=== PATIENT | female | born 1985 | race American Indian/Alaskan Native ===

== ENCOUNTER 2016-08-10 08:03 | Emergency (ER) | payer MEDICAID, OTHER ==
[2016-08-10] MEDS ORDERED: Lidocaine 1% 30 ML SDV INJECT ONE (08:20)
[2016-08-10] MEDS ORDERED: Bacitracin Oint 1 GM U/D Packet TOP ONE (08:20)
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
[2016-08-10 08:36] VITALS: BP 122/74
== END 2016-08-10 08:57 ==
LOC: DL.ED 08:03
DX: S61.012A Laceration without foreign body of left thumb without damage to nail, initial encounter (principal); H54.7 Unspecified visual loss; F41.9 Anxiety disorder, unspecified; F32.9 Major depressive disorder, single episode, unspecified; Z79.899 Other long term (current) drug therapy; Y04.0XXA Assault by unarmed brawl or fight, initial encounter; Z98.890 Other specified postprocedural states
CPT/HCPCS: 12001; 99282; 99283

== ENCOUNTER 2023-02-10 18:52 | Emergency (ER) | payer OTHER ==
[2023-02-10 19:16] LABS: APPEARANCE,URINE CLEAR (CLEAR); BILIRUBIN,URINE SMALL (NEGATIVE); COLOR,URINE YELLOW (YELLOW); GLUCOSE,URINE NEGATIVE (NEGATIVE); KETONES,URINE 40 (NEGATIVE); LEUKOCYTE ESTERASE,URINE TRACE (NEGATIVE); NITRITE,URINE NEGATIVE (NEGATIVE); OCCULT BLOOD,URINE MODERATE (NEGATIVE); PROTEIN,URINE 100 (NEGATIVE)
[2023-02-10 19:19] LABS: AMPHETAMINES,URINE POSITIVE (NEGATIVE); BARBITURATES,URINE NEGATIVE (NEGATIVE); BENZODIAZEPINE,URINE NEGATIVE (NEGATIVE); MDMA (ECSTASY), URINE POSITIVE (NEGATIVE); METHADONE,URINE NEGATIVE (NEGATIVE); METHAMPHETAMINES,URINE POSITIVE (NEGATIVE); OPIATES,URINE NEGATIVE (NEGATIVE); OXYCODONE,URINE NEGATIVE (NEGATIVE); PHENCYCLIDINE,URINE NEGATIVE (NEGATIVE); TCA,URINE NEGATIVE (NEGATIVE)
[2023-02-10 19:24] VITALS: BP 130/95; PULSE 122
[2023-02-10 19:26] LABS: BACTERIA,URINE MANY /HPF (0-FEW/HPF); EPITHELIAL CELLS,URINE MODERATE /HPF (NOT SEEN); MUCUS,URINE MANY /LPF (NOT SEEN); WBC,URINE 20-30 /HPF (0-5/HPF)
== END 2023-02-10 20:32 | disposition home or self-care (01) ==
LOC: DL.ED 18:52
DX: F15.980 Other stimulant use, unspecified with stimulant-induced anxiety disorder (principal); F12.180 Cannabis abuse with cannabis-induced anxiety disorder; Z79.899 Other long term (current) drug therapy
CPT/HCPCS: 80305-QW; 81001; 81025; 87086; 99285

== ENCOUNTER 2023-02-21 17:41 | Emergency (ER) | payer OTHER | END 2023-02-21 17:45 | disposition left against medical advice (07) | LOC: DL.ED 17:41 | DX: Z53.21 Procedure and treatment not carried out due to patient leaving prior to being seen by health care provider (principal) ==

== ENCOUNTER 2023-02-27 16:20 | Emergency (ER) | payer OTHER ==
[2023-02-27 19:23] VITALS: BP 119/78; PULSE 787
== END 2023-02-27 19:22 | disposition home or self-care (01) ==
LOC: DL.ED 16:20
DX: R51.9 Headache, unspecified (principal); F07.81 Postconcussional syndrome; F17.210 Nicotine dependence, cigarettes, uncomplicated
CPT/HCPCS: 70450; 99283; 99284

== ENCOUNTER 2023-03-01 10:12 | Emergency (ER) | payer OTHER ==
[2023-03-01] MEDS ORDERED: Ketorolac 30 MG/ML SDV IM ONE (10:24)
[2023-03-01] MEDS ORDERED: Dexamethasone 4 MG/ML SDV IM ONE (10:25)
[2023-03-01 10:26] VITALS: BP 93/51; PULSE 70
[2023-03-01] MEDS ORDERED: Ketorolac 30 MG/ML SDV ONE (10:40)
[2023-03-01 11:11] LABS: CORONAVIRUS COVID-19 NAA NEGATIVE (NEGATIVE); INFLUENZA A NAA POSITIVE (NEGATIVE); INFLUENZA B NAA NEGATIVE (NEGATIVE)
== END 2023-03-01 11:28 | disposition home or self-care (01) ==
LOC: DL.ED 10:12
DX: J10.1 Influenza due to other identified influenza virus with other respiratory manifestations (principal); Z79.899 Other long term (current) drug therapy
CPT/HCPCS: 0240U; 96372; 99282; 99285; J1100; J1885

== ENCOUNTER 2024-10-04 14:43 | Inpatient (IN) | payer MEDICAID ==
[2024-10-04 14:59] LABS: BASOPHILS PERCENT AUTO 0.7 % (0.0-1.0); EOSINOPHILS PERCENT AUTO 0.9 % (1.0-3.0); LYMPHOCYTES PERCENT AUTO 24.7 % (20.5-50.1); MONOCYTES PERCENT AUTO 9.8 % (2-8); NEUTROPHILS PERCENT AUTO 63.9 % (42.2-75.2); PLATELET COUNT,PLT 190 10^3/uL (150-450); RED BLOOD CELL COUNT 2.94 10^6/uL (4.2-5.4); WHITE BLOOD CELL COUNT,WBC 8.1 10^3/uL (5.0-10.0)
[2024-10-04 15:18] LABS: INR 1.1 (0.9-1.2); PTT,PARTIAL THROMBOPLSTIN TIME 20.5 SEC (22.0-34.0)
[2024-10-04] MEDS: Sodium Chloride 0.9% 10 ML Syringe FLUSH PRN (15:19)
[2024-10-04] MEDS: NS with KCl 40mEq 1,000 ML IV SCH (15:19)
[2024-10-04 15:21] LABS: A/G RATIO 0.7; ALANINE AMINOTRANSFERASE,ALT 196 U/L (14-59); ASPARTATE AMNIOTRANSFERASE,AST 255 U/L (15-37); BILIRUBIN TOTAL 3.3 mg/dL (0.2-1.0); BLOOD UREA NITROGEN,BUN 6 mg/dL (7-18); CARBON DIOXIDE,CO2 30 mmol/L (21-32); CREATININE 1.18 mg/dL (0.55-1.02); EST CRCL DRUG DOSING (CG) 55.82 mL/min; GLUCOSE RANDOM 166 mg/dL (70-99); PROTEIN TOTAL,TP 8.4 g/dL (6.4-8.2)
[2024-10-04] MEDS: Thiamine 200 MG/2 ML MDV IVPUSH ONE (15:22)
[2024-10-04 15:28] LABS: CHLORIDE,CL 91 mmol/L (98-107); SODIUM,NA 129 mmol/L (136-145)
[2024-10-04 15:30] LABS: ESTIMATED GFR 61 mL/min (>=60); ETHANOL BLOOD MEDICAL < 3 mg/dL (0)
[2024-10-04 15:31] LABS: POTASSIUM,K 2.4 mmol/L (3.5-5.1)
[2024-10-04] MEDS: Iopamidol 612 MG/ML 100 ML Bottle IVPUSH ONE (15:39)
[2024-10-04] MEDS: Magnesium Sulfate 2 GM/50 mL 2 GM in Premix Bag 1 BAG IV ONE (15:42)
[2024-10-04 17:31] LABS: AMPHETAMINES,URINE NEGATIVE (NEGATIVE); BARBITURATES,URINE NEGATIVE (NEGATIVE); MDMA (ECSTASY), URINE NEGATIVE (NEGATIVE); METHAMPHETAMINES,URINE NEGATIVE (NEGATIVE); OPIATES,URINE NEGATIVE (NEGATIVE); OXYCODONE,URINE NEGATIVE (NEGATIVE); PHENCYCLIDINE,URINE NEGATIVE (NEGATIVE); TCA,URINE NEGATIVE (NEGATIVE)
[2024-10-04] MEDS ORDERED: Sennosides/Docusate Sodium 50-8.6 MG Tab PO PRN (18:15)
[2024-10-04 19:13] LABS: LACTATE DEHYDROGENASE,LDH 636.0 U/L (81-234)
[2024-10-04] MEDS ORDERED: Flumazenil 0.1 MG/ML 5 ML MDV IVPUSH PRN (19:24)
[2024-10-04] MEDS: MVI, Adult with Vitamin K 10 ML, Folic Acid 1 MG, Thiamine 100 MG in Lactated Ringers 1... IV ONE (20:11)
[2024-10-04 23:01] LABS: IRON,FE 27.0 ug/dL (50-170); PERCENT FE SATURATION 11.3 % (20.0-50.0)
[2024-10-04 23:24] LABS: FOLIC ACID 15.0 ng/mL (8.6-58.9); T4 FREE 1.2 ng/dL (0.76-1.46); TSH ULTRASENSITIVE 1.67 uIU/mL (0.36-3.74)
[2024-10-05] MEDS: diphenhydrAMINE 50 MG/ML SDV IVPUSH ONE (02:06)
[2024-10-05] MEDS: methylPREDNISolone Sodium Succinate 40 MG/1 ML SDV IVPUSH ONE (02:07)
[2024-10-05 06:31] LABS: PLATELET COUNT,PLT 198 10^3/uL (150-450); RED BLOOD CELL COUNT 2.55 10^6/uL (4.2-5.4); WHITE BLOOD CELL COUNT,WBC 3.9 10^3/uL (5.0-10.0)
[2024-10-05 06:42] LABS: BASOPHILS PERCENT AUTO 0.8 % (0.0-1.0); EOSINOPHILS PERCENT AUTO 0.8 % (1.0-3.0); LYMPHOCYTES PERCENT AUTO 18.7 % (20.5-50.1); MONOCYTES PERCENT AUTO 3.9 % (2-8); NEUTROPHILS PERCENT AUTO 75.8 % (42.2-75.2)
[2024-10-05 06:53] LABS: ALANINE AMINOTRANSFERASE,ALT 160.0 U/L (14-59); ASPARTATE AMNIOTRANSFERASE,AST 237.0 U/L (15-37); BILIRUBIN DIRECT 2.0 mg/dL (0.0-0.2); BILIRUBIN TOTAL 2.8 mg/dL (0.2-1.0); BLOOD UREA NITROGEN,BUN 3.0 mg/dL (7-18); CARBON DIOXIDE,CO2 32.0 mmol/L (21-32); CHLORIDE,CL 100.0 mmol/L (98-107); CREATININE 0.88 mg/dL (0.55-1.02); EST CRCL DRUG DOSING (CG) 74.85 mL/min; GAMMA GLUTAMYL TRANSFERASE,GGT 466.0 U/L (5-55); GLUCOSE RANDOM 163.0 mg/dL (70-99); POTASSIUM,K 2.9 mmol/L (3.5-5.1); PROTEIN TOTAL,TP 6.9 g/dL (6.4-8.2); SODIUM,NA 139.0 mmol/L (136-145)
[2024-10-05 06:54] LABS: A/G RATIO 0.73; ESTIMATED GFR 86.0 mL/min (>=60)
[2024-10-05 07:19] LABS: BAND PERCENT MAN 2 %; EOSINOPHILS PERCENT MAN 1 % (1-3); LYMPHOCYTES PERCENT MAN 18 % (20-50); MONOCYTES PERCENT MAN 3 % (2-8); SEG NEUTROPHILS PERCENT MAN 76 % (42-75)
[2024-10-05] MEDS: Ondansetron 4 MG/2 ML SDV IVPUSH PRN (11:13)
[2024-10-05] MEDS: Potassium Chloride 10% 20 MEQ/15 ML Soln 15 ML UD Cup PO SCH (11:20)
[2024-10-05] MEDS ORDERED: diphenhydrAMINE 50 MG/ML SDV IVPUSH PRN (11:33)
[2024-10-05] MEDS: Potassium Chloride 10 MEQ Tab.ER PO ONE (13:40)
[2024-10-05] MEDS: methylPREDNISolone Sodium Succinate 40 MG/1 ML SDV IVPUSH SCH (13:41)
[2024-10-06 06:30] LABS: PLATELET COUNT,PLT 229 10^3/uL (150-450); RED BLOOD CELL COUNT 2.36 10^6/uL (4.2-5.4); WHITE BLOOD CELL COUNT,WBC 7.2 10^3/uL (5.0-10.0)
[2024-10-06 06:31] LABS: BASOPHILS PERCENT AUTO 0.1 % (0.0-1.0); EOSINOPHILS PERCENT AUTO 0.8 % (1.0-3.0); LYMPHOCYTES PERCENT AUTO 28.7 % (20.5-50.1); MONOCYTES PERCENT AUTO 11.2 % (2-8); NEUTROPHILS PERCENT AUTO 59.2 % (42.2-75.2)
[2024-10-06 06:49] LABS: ALANINE AMINOTRANSFERASE,ALT 159 U/L (14-59); ASPARTATE AMNIOTRANSFERASE,AST 232 U/L (15-37); BILIRUBIN TOTAL 1.8 mg/dL (0.2-1.0); BLOOD UREA NITROGEN,BUN 6 mg/dL (7-18); CARBON DIOXIDE,CO2 27 mmol/L (21-32); CHLORIDE,CL 104 mmol/L (98-107); CREATININE 1.22 mg/dL (0.55-1.02); EST CRCL DRUG DOSING (CG) 53.99 mL/min; GLUCOSE RANDOM 128 mg/dL (70-99); POTASSIUM,K 3.7 mmol/L (3.5-5.1); PROTEIN TOTAL,TP 6.7 g/dL (6.4-8.2); SODIUM,NA 139 mmol/L (136-145)
[2024-10-06 06:53] LABS: A/G RATIO 0.68; ESTIMATED GFR 58 mL/min (>=60)
[2024-10-06 07:23] LABS: LYMPHOCYTES PERCENT MAN 29 % (20-50); MONOCYTES PERCENT MAN 6 % (2-8); NRBC MANUAL 2 /100WBC; SEG NEUTROPHILS PERCENT MAN 65 % (42-75)
[2024-10-06] MEDS: diphenhydrAMINE 50 MG/ML SDV IVPUSH SCH (11:57)
[2024-10-06 13:21] LABS: BASOPHILS PERCENT AUTO 0.4 % (0.0-1.0); EOSINOPHILS PERCENT AUTO 0.2 % (1.0-3.0); LYMPHOCYTES PERCENT AUTO 15.2 % (20.5-50.1); MONOCYTES PERCENT AUTO 5.2 % (2-8); NEUTROPHILS PERCENT AUTO 79.0 % (42.2-75.2); PLATELET COUNT,PLT 245 10^3/uL (150-450); RED BLOOD CELL COUNT 2.40 10^6/uL (4.2-5.4); WHITE BLOOD CELL COUNT,WBC 5.4 10^3/uL (5.0-10.0)
[2024-10-06 13:35] LABS: BLOOD UREA NITROGEN,BUN 7.0 mg/dL (7-18); CARBON DIOXIDE,CO2 28.0 mmol/L (21-32); CHLORIDE,CL 104.0 mmol/L (98-107); CREATININE 0.99 mg/dL (0.55-1.02); EST CRCL DRUG DOSING (CG) 66.53 mL/min; GLUCOSE RANDOM 179.0 mg/dL (70-99); POTASSIUM,K 4.2 mmol/L (3.5-5.1); SODIUM,NA 138.0 mmol/L (136-145)
[2024-10-06 13:38] LABS: ESTIMATED GFR 75.0 mL/min (>=60)
[2024-10-06] MEDS: Potassium Chloride 10% 20 MEQ/15 ML Soln 15 ML UD Cup PO ONE (14:52)
[2024-10-07 06:23] LABS: BASOPHILS PERCENT AUTO 0.5 % (0.0-1.0); EOSINOPHILS PERCENT AUTO 1.6 % (1.0-3.0); LYMPHOCYTES PERCENT AUTO 34.4 % (20.5-50.1); MONOCYTES PERCENT AUTO 14.4 % (2-8); NEUTROPHILS PERCENT AUTO 49.1 % (42.2-75.2); PLATELET COUNT,PLT 288 10^3/uL (150-450); RED BLOOD CELL COUNT 2.44 10^6/uL (4.2-5.4); WHITE BLOOD CELL COUNT,WBC 7.3 10^3/uL (5.0-10.0)
[2024-10-07 06:48] LABS: A/G RATIO 0.64; ALANINE AMINOTRANSFERASE,ALT 145.0 U/L (14-59); ASPARTATE AMNIOTRANSFERASE,AST 211.0 U/L (15-37); BILIRUBIN TOTAL 1.1 mg/dL (0.2-1.0); BLOOD UREA NITROGEN,BUN 8.0 mg/dL (7-18); CARBON DIOXIDE,CO2 29.0 mmol/L (21-32); CHLORIDE,CL 107.0 mmol/L (98-107); CREATININE 1.03 mg/dL (0.55-1.02); EST CRCL DRUG DOSING (CG) 63.95 mL/min; ESTIMATED GFR 71.0 mL/min (>=60); GLUCOSE RANDOM 106.0 mg/dL (70-99); POTASSIUM,K 3.9 mmol/L (3.5-5.1); PROTEIN TOTAL,TP 5.9 g/dL (6.4-8.2); SODIUM,NA 140.0 mmol/L (136-145)
[2024-10-07] MEDS ORDERED: Potassium Chloride 10% 20 MEQ/15 ML Soln 15 ML UD Cup PO SCH (08:00)
[2024-10-07 11:14] VITALS: BP 108/65; PULSE 116
== END 2024-10-07 13:21 | disposition home or self-care (01) | DRG 896 ==
LOC: DL.ED 14:43 → DL.MS 17:47 → INTOOBSV 17:47 → DL.MS 18:05 → OBSVTOIN 10-06 15:49
PROVIDERS: ADMIT Student in an Organized Health Care Education/Training Program; ATTEND Student in an Organized Health Care Education/Training Program
DX: F10.139 Alcohol abuse with withdrawal, unspecified (principal); K85.20 Alcohol induced acute pancreatitis without necrosis or infection; E87.1 Hypo-osmolality and hyponatremia; F41.9 Anxiety disorder, unspecified; F32.A Depression, unspecified; E87.6 Hypokalemia; E83.42 Hypomagnesemia; E80.6 Other disorders of bilirubin metabolism; K70.0 Alcoholic fatty liver; R73.9 Hyperglycemia, unspecified; F12.90 Cannabis use, unspecified, uncomplicated; B19.20 Unspecified viral hepatitis C without hepatic coma; L29.9 Pruritus, unspecified; D50.9 Iron deficiency anemia, unspecified; R74.02 Elevation of levels of lactic acid dehydrogenase [LDH]; R74.8 Abnormal levels of other serum enzymes; E88.09 Other disorders of plasma-protein metabolism, not elsewhere classified; Z98.890 Other specified postprocedural states; Z79.899 Other long term (current) drug therapy; Z98.51 Tubal ligation status
CPT/HCPCS: 36415; 74177; 80048; 80053; 80305-QW; 80307; 82140; 82248; 82272; 82607; 82728; 82746; 82977; 83036; 83540; 83550; 83605; 83615; 83690; 83735; 84132; 84439; 84443; 85025; 85610; 85730; 86140; 86850; 86900; 86901; 93005; 93010; 96365; 96366; 96367; 96368; 96375; 96376; 97161-GP; 99223; 99232; 99238; 99285; 99285-25; A9270-GY; G0378; J1200; J1308; J1808; J2405; J2919; J3360; J3411; J3475; J3480; J3490; J7120; Q9967

== ENCOUNTER 2024-11-26 23:02 | Emergency (ER) | payer MEDICAID ==
[2024-11-26] MEDS ORDERED: Sodium Chloride 0.9% 10 ML Syringe FLUSH PRN (23:15)
[2024-11-26 23:30] LABS: BASOPHILS PERCENT AUTO 0.7 % (0.0-1.0); EOSINOPHILS PERCENT AUTO 1.8 % (1.0-3.0); LYMPHOCYTES PERCENT AUTO 45.8 % (20.5-50.1); MONOCYTES PERCENT AUTO 5.5 % (2-8); NEUTROPHILS PERCENT AUTO 46.2 % (42.2-75.2); PLATELET COUNT,PLT 97 10^3/uL (150-450); RED BLOOD CELL COUNT 3.44 10^6/uL (4.2-5.4); WHITE BLOOD CELL COUNT,WBC 7.3 10^3/uL (5.0-10.0)
[2024-11-26 23:58] LABS: LACTIC ACID 3.1 mmol/L (0.4-2.0)
[2024-11-27 00:03] LABS: A/G RATIO 0.61; ALANINE AMINOTRANSFERASE,ALT 401 U/L (14-59); BILIRUBIN TOTAL 4.2 mg/dL (0.2-1.0); BLOOD UREA NITROGEN,BUN 7 mg/dL (7-18); CARBON DIOXIDE,CO2 25 mmol/L (21-32); CHLORIDE,CL 95 mmol/L (98-107); GLUCOSE RANDOM 124 mg/dL (70-99); POTASSIUM,K 3.2 mmol/L (3.5-5.1); PROTEIN TOTAL,TP 9.2 g/dL (6.4-8.2); SODIUM,NA 137 mmol/L (136-145)
[2024-11-27 00:35] LABS: ETHANOL BLOOD MEDICAL 226.0 mg/dL (0)
[2024-11-27 00:37] VITALS: BP 125/79; PULSE 99
[2024-11-27 00:39] LABS: CREATININE 0.76 mg/dL (0.55-1.02); EST CRCL DRUG DOSING (CG) 97.60 mL/min
[2024-11-27 00:40] LABS: ASPARTATE AMNIOTRANSFERASE,AST > 1000 U/L (15-37); ESTIMATED GFR 103 mL/min (>=60)
== END 2024-11-27 01:06 | disposition left against medical advice (07) ==
LOC: DL.ED 23:02
DX: F10.120 Alcohol abuse with intoxication, uncomplicated (principal); D64.9 Anemia, unspecified; E87.20 Acidosis, unspecified; Z79.899 Other long term (current) drug therapy; Y90.9 Presence of alcohol in blood, level not specified
CPT/HCPCS: 36415; 80053; 80307; 83605; 83735; 84145; 85025; 96360; 99283; J7030; 99285

== ENCOUNTER 2024-11-28 16:39 | Inpatient (IN) | payer MEDICAID ==
[2024-11-28] MEDS ORDERED: Sodium Chloride 0.9% 10 ML Syringe FLUSH PRN (17:09)
[2024-11-28 17:26] LABS: BASOPHILS PERCENT AUTO 0.3 % (0.0-1.0); EOSINOPHILS PERCENT AUTO 1.0 % (1.0-3.0); LYMPHOCYTES PERCENT AUTO 20.6 % (20.5-50.1); MONOCYTES PERCENT AUTO 6.1 % (2-8); NEUTROPHILS PERCENT AUTO 72.0 % (42.2-75.2); PLATELET COUNT,PLT 92 10^3/uL (150-450); RED BLOOD CELL COUNT 3.22 10^6/uL (4.2-5.4); WHITE BLOOD CELL COUNT,WBC 7.9 10^3/uL (5.0-10.0)
[2024-11-28 17:41] LABS: INR 1.1 (0.9-1.2)
[2024-11-28 17:57] LABS: A/G RATIO 0.66; ALANINE AMINOTRANSFERASE,ALT 306 U/L (14-59); ASPARTATE AMNIOTRANSFERASE,AST 659 U/L (15-37); BILIRUBIN TOTAL 4.0 mg/dL (0.2-1.0); BLOOD UREA NITROGEN,BUN 4 mg/dL (7-18); CARBON DIOXIDE,CO2 26 mmol/L (21-32); CHLORIDE,CL 94 mmol/L (98-107); ETHANOL BLOOD MEDICAL 135 mg/dL (0); GLUCOSE RANDOM 147 mg/dL (70-99); POTASSIUM,K 2.8 mmol/L (3.5-5.1); PROTEIN TOTAL,TP 8.3 g/dL (6.4-8.2); SODIUM,NA 135 mmol/L (136-145)
[2024-11-28] MEDS: Iopamidol 755 Mg/ML 100 ML Bottle IVPUSH ONE (18:00)
[2024-11-28 18:09] LABS: CREATININE 0.86 mg/dL (0.55-1.02); EST CRCL DRUG DOSING (CG) 86.25 mL/min
[2024-11-28 18:10] LABS: ESTIMATED GFR 89 mL/min (>=60)
[2024-11-28 19:52] LABS: AMPHETAMINES,URINE NEGATIVE (NEGATIVE); BARBITURATES,URINE NEGATIVE (NEGATIVE); MDMA (ECSTASY), URINE NEGATIVE (NEGATIVE); METHAMPHETAMINES,URINE NEGATIVE (NEGATIVE); OPIATES,URINE NEGATIVE (NEGATIVE); OXYCODONE,URINE NEGATIVE (NEGATIVE); PHENCYCLIDINE,URINE NEGATIVE (NEGATIVE); TCA,URINE NEGATIVE (NEGATIVE)
[2024-11-28] MEDS: Potassium Chloride 20 MEQ in Premix Bag 1 BAG IV SCH (19:59)
[2024-11-28 21:31] LABS: IRON,FE 42.0 ug/dL (50-170); PERCENT FE SATURATION 15.8 % (20.0-50.0)
[2024-11-28 21:56] LABS: FOLIC ACID 7.2 ng/mL (8.6-58.9)
[2024-11-28 21:57] LABS: GAMMA GLUTAMYL TRANSFERASE,GGT 808.0 U/L (5-55)
[2024-11-28] MEDS: MVI, Adult with Vitamin K 10 ML, Folic Acid 1 MG, Thiamine 100 MG in Lactated Ringers 1... IV ONE (22:45)
[2024-11-28] MEDS: Magnesium Sulfate 2 GM/50 mL 2 GM in Premix Bag 1 BAG IV ONE (22:46)
[2024-11-28] MEDS: Potassium Phosphates 15 MMOLE in Sodium Chloride 0.9% 250 ML IV ONE (22:47)
[2024-11-28] MEDS: Ondansetron 4 MG/2 ML SDV IVPUSH PRN (22:49)
[2024-11-29 06:15] LABS: PLATELET COUNT,PLT 77.0 10^3/uL (150-450); RED BLOOD CELL COUNT 2.72 10^6/uL (4.2-5.4); WHITE BLOOD CELL COUNT,WBC 5.0 10^3/uL (5.0-10.0)
[2024-11-29 06:41] LABS: ALANINE AMINOTRANSFERASE,ALT 201.0 U/L (14-59); ASPARTATE AMNIOTRANSFERASE,AST 373.0 U/L (15-37); BILIRUBIN DIRECT 2.7 mg/dL (0.0-0.2); BILIRUBIN INDIRECT 1.1; BILIRUBIN TOTAL 3.8 mg/dL (0.2-1.0); BLOOD UREA NITROGEN,BUN 4.0 mg/dL (7-18); CARBON DIOXIDE,CO2 27.0 mmol/L (21-32); CHLORIDE,CL 101.0 mmol/L (98-107); CREATININE 0.67 mg/dL (0.55-1.02); EST CRCL DRUG DOSING (CG) 110.71 mL/min; GLUCOSE RANDOM 100.0 mg/dL (70-99); PHOSPHORUS 3.3 mg/dL (2.6-4.7); POTASSIUM,K 3.2 mmol/L (3.5-5.1); PROTEIN TOTAL,TP 6.6 g/dL (6.4-8.2); SODIUM,NA 137.0 mmol/L (136-145)
[2024-11-29 06:43] LABS: A/G RATIO 0.65; ESTIMATED GFR 115.0 mL/min (>=60)
[2024-11-29] MEDS ORDERED: Sodium Chloride 0.9% 10 ML Syringe FLUSH PRN (08:13)
[2024-11-29] MEDS: Potassium Chloride 20 MEQ in Premix Bag 1 BAG IV ONE (08:57)
[2024-11-29] MEDS: Sodium Chloride 0.9% 10 ML Syringe FLUSH SCH (09:03)
[2024-11-30 06:56] LABS: BASOPHILS PERCENT AUTO 0.4 % (0.0-1.0); EOSINOPHILS PERCENT AUTO 4.5 % (1.0-3.0); LYMPHOCYTES PERCENT AUTO 24.0 % (20.5-50.1); MONOCYTES PERCENT AUTO 8.8 % (2-8); NEUTROPHILS PERCENT AUTO 62.3 % (42.2-75.2); PLATELET COUNT,PLT 82 10^3/uL (150-450); RED BLOOD CELL COUNT 2.66 10^6/uL (4.2-5.4); WHITE BLOOD CELL COUNT,WBC 4.7 10^3/uL (5.0-10.0)
[2024-11-30 07:14] LABS: BLOOD UREA NITROGEN,BUN 3.0 mg/dL (7-18); CARBON DIOXIDE,CO2 24.0 mmol/L (21-32); CHLORIDE,CL 106.0 mmol/L (98-107); CREATININE 0.62 mg/dL (0.55-1.02); EST CRCL DRUG DOSING (CG) 119.64 mL/min; GLUCOSE RANDOM 139.0 mg/dL (70-99); POTASSIUM,K 3.2 mmol/L (3.5-5.1); SODIUM,NA 140.0 mmol/L (136-145)
[2024-11-30 07:16] LABS: ESTIMATED GFR 117.0 mL/min (>=60)
[2024-11-30] MEDS: Potassium Chloride 20 MEQ in Premix Bag 1 BAG IV ONE (09:17)
[2024-11-30 20:16] VITALS: BP 111/82; PULSE 117
[2024-12-01 12:47] LABS: HAV AB IGM Negative (Negative); HBC IGM Negative (Negative); HEP B SURG AG Negative (Negative); HEP C AB BY CIA High Pos (Negative); HEP C AB BY CIA INDEX >11.00 IV
[2024-12-02 05:46] LABS: HEP C QNT BY NAAT (IU/mL) Not Detected; HEP C QNT BY NAAT (log IU/mL) Not Detected log IU/mL; HEP C QNT BY NAAT INTERP Not Detected (Not Detected)
== END 2024-11-30 21:30 | disposition home or self-care (01) | DRG 439 ==
LOC: DL.ED 16:39 → DL.MS 20:15
PROVIDERS: ADMIT Internal Medicine; ATTEND Internal Medicine
DX: K85.20 Alcohol induced acute pancreatitis without necrosis or infection (principal); E87.20 Acidosis, unspecified; F10.239 Alcohol dependence with withdrawal, unspecified; F17.210 Nicotine dependence, cigarettes, uncomplicated; F12.90 Cannabis use, unspecified, uncomplicated; Y90.6 Blood alcohol level of 120-199 mg/100 ml; K29.20 Alcoholic gastritis without bleeding; E86.0 Dehydration; K72.90 Hepatic failure, unspecified without coma; D69.6 Thrombocytopenia, unspecified; R74.01 Elevation of levels of liver transaminase levels; E87.6 Hypokalemia; F15.10 Other stimulant abuse, uncomplicated; E80.6 Other disorders of bilirubin metabolism; D50.9 Iron deficiency anemia, unspecified; R63.0 Anorexia; E83.42 Hypomagnesemia; E83.39 Other disorders of phosphorus metabolism; Z79.899 Other long term (current) drug therapy; Z68.23 Body mass index [BMI] 23.0-23.9, adult
CPT/HCPCS: 36415; 74174; 80048; 80053; 80074; 80076; 80143; 80305-QW; 80307; 82272; 82607; 82746; 82977; 83540; 83550; 83605; 83690; 83735; 84100; 84703; 85025; 85027; 85610; 86140; 86850; 86900; 86901; 87522; 96361; 96374; 99223; 99233; 99239; 99285; 99285-25; A9270-GY; J1171; J1808; J2270; J2405; J2470; J3360; J3411; J3475; J3480; J3490; J7030; J7050; J7120; Q0138; Q9967